=== PATIENT | female | born 1995 | race Caucasian/White ===

== ENCOUNTER 2018-12-12 23:40 | Emergency (ER) | payer SELFPAY ==
[2018-12-13] MEDS: KETOROLAC 60 MG INJ IM (01:09)
== END 2018-12-13 01:47 | disposition home or self-care (01) ==
LOC: FTE 12-13 01:47
DX: K08.89 Other specified disorders of teeth and supporting structures (principal)
CPT/HCPCS: 81025; 96372; 99284-25